=== PATIENT | female | born 1960 | race Caucasian/White ===

== ENCOUNTER 2016-07-22 03:33 | Inpatient (IN) | payer OTHER ==
[~2016-07-22] VITALS: Ht 160 cm; Wt 91.6 kg
[~2016-07-22 03:33] MED LIST: BACLOFEN20 M1 PO; BREO ELLIPTA 11 EACH INH; CETIRIZINE HCL5 M1 PO; CYANOCOBAL1000 MCG/2 IM; DYMISTA NASAL S23 GM NASB; EFFEXOR XR75 M1 PO; ETODOLAC300 M1 PO; LISINOPRIL10 M1 PO; SINGULAIR10 M1 PO; TRAMADOL HCL50 M1 PO; VENTOLIN HFA18 GM INH; ZANTAC150 M1 PO; ZOCOR20 M1 PO
--- NOTE | 2016-07-22 14:00 | Patient Discharge Instructions ---
Discharge Instructions General Discharge Information You were seen/treated for: RIGHT HIP PAIN You had these procedures: 07/22/2016 right total hip arthroplasty Watch for these problems: Redness, swelling, fever, signs of infection. Uncontrolled pain, Excessive bleeding. Decreased range of motion or unable to bear weight. Chest pain, shortness of breath. Call Surgeon to remove: Stitches Do not soak the wound: Yes No bath, but you may shower: Yes Other wound care: Daily dry dressing changes or as needed Diet Continue normal diet: Yes Activity Activity Self Limited: Yes Activity Limited to: Weight bear as tolerated Additional ACTIVITY Info: Daily physical therapy Acute Coronary Syndrome Inclusion Criteria At DC or during hospital stay patient has or had the following: ACS DIAGNOSIS No Discharge Core Measures Meds if any: Prescribed or Continued at Discharge Meds if any: NOT Prescribed or Continued at Discharge Congestive Heart Failure Inclusion Criteria At DC or during hospital stay patient has or had the following: CHF DIAGNOSIS No Discharge Core Measures Meds if any: Prescribed or Continued at Discharge Meds if any: NOT Prescribed or Continued at Discharge Cerebrovascular accident Inclusion Criteria At DC or during hospital stay patient has or had the following: CVA/TIA Diagnosis No Discharge Core Measures Meds if any: Prescribed or Continued at Discharge Meds if any: NOT Prescribed or Continued at Discharge Venous thromboembolism Inclusion Criteria VTE Diagnosis No VTE Type NONE VTE Confirmed by (Test) NONE Discharge Core Measures - Per Current guidelines, there needs to be overlap - treatment for the first 5 days of Warfarin therapy. - If discharged on Warfarin prior to 5 days of - overlap therapy, the patient will need to be - assessed for post discharge needs including - *Post discharge parental anticoagulation - *Warfarin and/or parental anticoagulation education - *Follow up date to check INR post discharge At least 5 days overlap therapy as Inpatient No Meds if any: Prescribed or Continued at Discharge Note: Overlap Therapy is Warfarin and Anticoagulant Meds if any: NOT Prescribed or Continued at Discharge
[2016-07-22] MEDS ORDERED: COLACE100 M1 PO (14:03)
[2016-07-22] MEDS ORDERED: ASPIRIN325 M2 PO (14:03)
[2016-07-22] MEDS ORDERED: DILAUDID2 M1 PO (14:03)
[2016-07-22] MEDS ORDERED: MIRALAX17 G1 PO (14:03)
--- NOTE | 2016-07-22 14:05 | Admission Core Measures ---
Admission Meds I reviewed the following Meds: Current Medications Sig/Tarun Start time Last Medication Dose Stop Time Status Admin Acetaminophen 975 MG ONCE 07/22 0000 NR (Tylenol) 07/22 2359 Albuterol Sulfate 2 PUF Q2P PRN 07/22 1400 UNVr (Ventolin) Atorvastatin Calcium 10 MG 1700 07/22 1700 UNVr (Lipitor) Baclofen 20 MG TID PRN 07/22 1400 UNVr (Lioresal 10MG Tablet) Budesonide/ 2 PUF BID 07/22 2200 UNVr Formoterol Fumarate (Symbicort) Cefazolin Sodium 2,000 MG ONCE 07/22 0000 NR (Kefzol-Ancef Inj) 07/22 2359 Famotidine 20 MG DAILY 07/23 1000 UNVr (Pepcid) Fluticasone 2 SPRAY DAILY 07/23 1000 UNVr Propionate (Flonase) Lisinopril 10 MG DAILY 07/23 1000 UNVr (Prinivil) Loratadine 10 MG DAILY PRN 07/22 1400 UNVr (Claritin) Montelukast Sodium 10 MG DAILY 07/23 1000 UNVr (Singulair) Oxycodone HCl 10 MG ONCE 07/22 0000 NR (Roxicodone) 07/22 2359 Venlafaxine HCl 75 MG DAILY 07/23 1000 UNVr (Effexor Xr) Acute Coronary Syndrome Inclusion Criteria ACS Diagnosis No Inpatient Core Measures LDL Reminder: If No, please order W/I first 24hr of stay Congestive Heart Failure Inclusion Criteria CHF Diagnosis No Cerebrovascular accident Inclusion Criteria CVA/TIA Diagnosis No Inpatient Core Measures Bedside Swallow Eval Reminder: If BSE failed, place ST order Antithrombotic Reminder: Order Antithrombotic Medication by end of day 2 Antithrombotic Reminder: Document Reason Antithrombotic Not ordered by end of day 2 AFIB/Flutter Reminder: If Present, add to problem list AFIB/Flutter Reminder: Order Anticoag Medication for pts with AFIB/Flutter Atherosclerosis Reminder: If Present, add to problem list LDL Reminder: If No, please order W/I first 24hr of stay PT Order Reminder: If No, please order Venous thromboembolism Inpatient Core Measures VTE Risk Factors: Age > 40, Obesity, Surgery VTE Prophylaxis Ordered Inpt Mech & Pharm No Mech VTE prophylaxis d/t No contraindications No VTE Pharm Prophylaxis d/t No contraindications Inclusion Criteria - Per Current guidelines, there needs to be overlap - treatment for the first 5 days of Warfarin therapy. - Parenteral Anticoagulation (IV or SC) needs to be - given along with Warfarin therapy. VTE Diagnosis No VTE Type NONE VTE Confirmed by (Test) NONE Problem List As ranked by this Provider includes Assessment & Plan 1. Status post total hip replacement, right HOME MEDS Home Med List Albuterol Sulfate (Ventolin Hfa) 90 MCG HFA.AER.AD 2 PUF INH PRN COPD ( Reported) Aspirin (Aspirin*) 325 MG TABLET 1 TAB PO BID BLOOD THINNER Azelastine/Fluticasone (Dymista Nasal [place]) 137 MCG-50 MCG/SPRAY SPRAY.PUMP 1 SPRAY NASB BID ALLERGIES (Reported) Baclofen 20 MG TABLET 1 TAB PO TID PRN SPASMS (Reported) Cetirizine HCl 5 MG TABLET 1 TAB PO DAILY ALLERGIES (Reported) Cyanocobalamin (Vitamin B-12) (Cyanocobalamin Injection) 1,000 MCG/ML VIAL 1 ML IM QW SUPPLEMENT (Reported) Docusate Sodium (Colace) 100 MG CAPSULE 1 CAP PO BID PRN CONSTIPATION Etodolac 300 MG CAPSULE 1 CAP PO BID INFLAMMATION (Reported) Fluticasone/Vilanterol (Breo Ellipta 100-25 Mcg INH) (Unknown Strength) BLST.W.DEV (Unknown Dose) INH DAILY COPD (Reported) Hydromorphone HCl (Dilaudid) 2 MG TABLET 1-2 TAB PO BID PRN PAIN Lisinopril 10 MG TABLET 1 TAB PO DAILY BP (Reported) Montelukast Sodium (Singulair) 10 MG TABLET 1 TAB PO DAILY ALLERGIES ( Reported) Polyethylene Glycol 3350 (Miralax) 17 GRAM POWD.PACK 1 PAC PO DAILY PRN CONSTIPATION Ranitidine HCl (Zantac) 150 MG TABLET 1 TAB PO DAILY GERD (Reported) Simvastatin (Zocor*) 20 MG TABLET 1 TAB PO DAILY CHOLESTEROL (Reported) Tramadol HCl 50 MG TABLET 1 TAB PO PRN PAIN (Reported) Venlafaxine HCl (Effexor XR) 75 MG CAP.ER.24H 1 CAP PO DAILY DEPRESSION ( Reported)
--- NOTE | 2016-07-22 14:06 | Discharge Summary ---
Visit Information Visit Dates Admission Date: 07/22/16 Discharge Date: 07/23/16 Hospital Course Course Attending Physician: JEAN CASTRO MD Primary Care Physician: UNKNOWN Hospital Course: Patient admitted to floor following procedure below. Patient ambulated with PT upon arrival to the floor. Patient continued to progress well. Upon discharge patient is afebrile, tolerating diet, pain controlled, ambulating well with rolling walker and PT. Complications: None Allergies: Coded Allergies: pregabalin (From LYRICA) (Severe, ANAPHYLAXIS 07/21/16) codeine (Intermediate, GI UPSET 07/21/16) Significant Procedures: 07/22/2016 right total hip arthroplasty Disposition Summary Disposition Principal Diagnosis: Right hip pain Additional Diagnosis: None Discharge Disposition: home health services Discharge Instructions General Discharge Information Code Status: Full Code Patient's Diet: Resume normal diet Patient's Activity: Weightbearing as tolerated Daily physical therapy Follow-Up Instructions/Appts: Call office to schedule/confirm appointment Medications at Discharge Discharge Medications: Stop taking the following medications: Etodolac (Etodolac) 300 MG CAPSULE ORAL TWICE DAILY Tramadol HCl (Tramadol HCl) 50 MG TABLET ORAL as needed for PAIN Continue taking these medications: Simvastatin (Zocor*) 20 MG TABLET 1 Tablet ORAL DAILY Comments: DOCUMENTED PER CMR DURING PRE-SX INTERVIEW NOT GIVEN IN HOSPITAL, LIPITOR GIVEN 07/22/16 Lisinopril (Lisinopril) 10 MG TABLET 1 Tablet ORAL DAILY Comments: DOCUMENTED PER CMR DURING PRE-SX INTERVIEW Last Taken: Time: Baclofen (Baclofen) 20 MG TABLET 1 Tablet ORAL THREE TIMES DAILY as needed for SPASMS Comments: DOCUMENTED PER CMR DURING PRE-SX INTERVIEW NOT GIVEN IN HOSPITAL Cetirizine HCl (Cetirizine HCl) 5 MG TABLET 1 Tablet ORAL DAILY Comments: DOCUMENTED PER CMR DURING PRE-SX INTERVIEW NOT GIVEN IN HOSPITAL Venlafaxine HCl (Effexor XR) 75 MG CAP.ER.24H 1 Capsule ORAL DAILY Comments: DOCUMENTED PER CMR DURING PRE-SX INTERVIEW Last Taken: 07/22/16 Time: 2013 Montelukast Sodium (Singulair) 10 MG TABLET 1 Tablet ORAL DAILY Comments: DOCUMENTED PER CMR DURING PRE-SX INTERVIEW Last Taken: 07/22/16 Time: 2012 Azelastine/Fluticasone (Dymista Nasal [place]) 137 MCG-50 MCG/SPRAY SPRAY.PUMP 1 [place] Both sides of nose TWICE DAILY Comments: DOCUMENTED PER CMR DURING PRE-SX INTERVIEW NOT GIVEN IN HOSPITAL Fluticasone/Vilanterol (Breo Ellipta 100-25 Mcg INH) (Unknown Strength) BLST.W.DEV Unknown Dose Inhale through mouth DAILY Comments: DOCUMENTED PER CMR DURING PRE-SX INTERVIEW NOT GIVEN IN HOSPITAL Albuterol Sulfate (Ventolin Hfa) 90 MCG HFA.AER.AD 2 Puff Inhale through mouth as needed for COPD Comments: DOCUMENTED PER CMR DURING PRE-SX INTERVIEW Ranitidine HCl (Zantac) 150 MG TABLET 1 Tablet ORAL DAILY Comments: DOCUMENTED PER CMR DURING PRE-SX INTERVIEW NOT GIVEN IN HOSPITAL Cyanocobalamin (Vitamin B-12) (Cyanocobalamin Injection) 1,000 MCG/ML VIAL 1 Milliliters INTRAMUSC Once a Week Comments: DOCUMENTED PER CMR DURING PRE-SX INTERVIEW NOT GIVEN IN HOSPITAL Start taking the following new medications: Hydromorphone HCl (Dilaudid) 2 MG TABLET 1-2 Tablet ORAL TWICE DAILY as needed for PAIN Qty = 36 No Refills Comments: Last Taken: 07/23/16 Time: 0845 Aspirin (Aspirin*) 325 MG TABLET 1 Tablet ORAL TWICE DAILY Qty = 60 No Refills Comments: Last Taken: 07/23/16 Time: 0845 Docusate Sodium (Colace) 100 MG CAPSULE 1 Capsule ORAL TWICE DAILY as needed for CONSTIPATION Qty = 30 No Refills Comments: Last Taken: 07/23/16 Time: 0651 Polyethylene Glycol 3350 (Miralax) 17 GRAM POWD.PACK 1 Packet ORAL DAILY as needed for CONSTIPATION Qty = 14 No Refills Instructions: dissolve in water Comments: Last Taken: 07/23/16 Time: 0845 Copies To: MATTHEW ARREAGA,JEAN
--- NOTE | 2016-07-22 14:45 | RADIOLOGY REPORT ---
EXAMINATION: 2 views of the right hip CLINICAL INFORMATION: Postop COMPARISON: None TECHNIQUE: Two views of the right hip. FINDINGS: Postoperative changes following right total hip arthroplasty. The prosthesis elements appear well aligned. A surgical drain tip projects just above the greater trochanter of the proximal right femur. No fractures are identified. The visualized bony pelvis is intact. IMPRESSION: Postoperative changes following right total hip arthroplasty and drain placement. Prosthesis elements appear well aligned. No fractures.
--- NOTE | 2016-07-22 15:09 | Operative Report ---
Operative/Inv Procedure Report Surgery Date: 07/22/16 Name of Procedure: Right total hip replacement Pre-Operative Diagnosis: Primary right hip DJD Post-Operative Diagnosis: Same Estimated Blood Loss: 400 Surgeon/Driller Helper: MATTHEW ARREAGA,JEAN Simons Anesthesia: block Operative/Procedure Note Note: Description of Procedure: The patient was taken to the operating room and positively identified. After induction of spinal anesthesia and administration of appropriate pre-operative antibiotics, the patient was positioned supine on the operating room table and all bony prominences were well padded. After performing a surgical timeout, the right lower extremity was prepped and draped in the usual sterile fashion. A direct anterior approach was made to the right hip. The incision was carried sharply through superficial soft tissues to the level of the fascia. Meticulous hemostasis was maintained with Bovie electocautery. The fascia over the tensor fascia rema muscle was opened sharply and the interval between the TFL and the sartorius was entered bluntly taking care to stay lateral to the lateral femoral cutaneous nerve. Retractors were placed around the femoral neck and the pericapsular fat was identified. The ascending branches of the lateral femoral circumflex vessels were identified and carefully coagulated. The pericapsular fat and anterior capsule were then resected. A napkin ring osteotomy was performed and the femoral head was removed without difficulty. Attention was then turned to the acetabulum. After appropriate placement of retractors, the acetabulum was exposed. Soft tissue was cleaned from the acetabular margin and notch. Overhanging osteophytes were removed and the teardrop was exposed. The acetabulum was then sequentially reamed to accept a 54 mm Anastasiia Tritanium hemispherical solid back shell. This was impacted into place in the appropriate position and fitted with a 32 mm Trident X3 zero degree polyethylene insert. Attention was then turned to the femur. After performing the appropriate ligament releases, the proximal femur was exposed. It was then sequentially broached to accept a size 5 [place] accolade 2 stem. This was trialed for leg length and stability. The trial component was removed and the final component was impacted into place. The trunnion was carefully cleaned and fit with a 32 mm, -4 Biolox delta ceramic femoral head. The hip was reduced and put through a full range of motion and found to be stable. The articular space was then irrigated with sterile saline. The periarticular soft tissues were infilitrated with Marcaine. The fascial layer was closed with interrupted #1 vicryl suture and the skin was re-approximated with interrupted 2 -0 vicryl. The skin was closed with a running 3-0 V-Lock suture. Steri-strips and a sterile dressing were applied. The patient was awakened and taken to the recovery room in satisfactory condition.
--- NOTE | 2016-07-22 15:32 | PN- Orthopedic ---
Subjective Subjective: Awake, alert complaining of pain but has just received pain meds Denies nausea Normall takes tramadol at home Objective Vital Signs and I&Os Intake & Output 07/22 1600 07/22 0800 07/22 0000 07/21 1600 07/21 0800 07/21 0000 Intake Total Output Total Balance Patient 202 lb Weight Physical Exam: afebrile, vss Good urine output in mercedes - has not been dc'd yet General: alert and oriented times three Chest: clear anteriorly bilaterally, RRR Abd: soft, good bs Ext: warm, positive sensate, no calf tenderness Wounds: dressed, dry Drain in place Assessment/Plan Assessment/Plan 56 yo female s/p R THR dc mercedes drain overnight pain mgmt PT - WBAT ancef 2 doses ASA 325mg po bid for dvt ppx Core Measures/Miscellaneous Venous Thromboembolism VTE Risk Factors: Age > 40, Surgery VTE Contraindications: No Contraindications VTE Prophylaxis Ordered Inpt: Mech & Pharm VTE Diagnosis: No VTE Type: NONE VTE Confirmed by (Test): NONE Beta Jackie Is Beta Jackie a Home Med? No Antibiotics Is Patient on Antibiotics? Yes If Yes: prophylaxis (24 hrs post op)
--- NOTE | 2016-07-22 16:14 | NUR ---
Physical Therapy. Pt still in PACU, report not yet given to nsg for pt to be moved upstairs. PT offered to come to PACU for PT evaluation. Nsg deferred, reporting pt is in too much pain at this time. PT will f/u as appropriate for evaluation.
[2016-07-22 17:30] VITALS: BP 118/70
[2016-07-22 19:40] VITALS: BP 126/70
--- NOTE | 2016-07-22 21:42 | NUR ---
LATE ENTRY: PATIENT ARRIVED TO FLOOR AT 1633 FROM PACU, S/P TOTAL R HIP REPLACEMENT VS 97.9 66 18 118/70 100% ROOM AIR, PAIN 7/10 A&O, LCTA. INDEPENDENT WITH CANE PRIOR TO SURGERY. L HIP DSG CDI, HEMOVAC IN PLACE, ALPS ARE ON. SKIN OTHERWISE INTACT. OTERO D/C'D AT 1600, HAS VOIDED 800CCs AT THIS TIME. #20 IV TO RAC WITH NS @ 75 ML/HR INFUSING. ORIENTED TO ROOM AND CALL SWANN. CONTINUE TO MONITOR.
[2016-07-22 21:55] VITALS: BP 124/70
[2016-07-23] VITALS: BP 110/70
[2016-07-23 04:00] VITALS: BP 120/70
[2016-07-23 07:58] VITALS: BP 110/70
[2016-07-23 08:28] LABS: ABSOLUTE BASOPHIL COUNT 0 /CUMM (0.0-0.2); ABSOLUTE EOSINOPHIL COUNT 0 /CUMM (0.0-0.7); ABSOLUTE GRANULOCYTE CT 4.6 /CUMM (1.4-6.5); ABSOLUTE LYMPH COUNT 1.3 /CUMM (1.2-3.4); ABSOLUTE MONOCYTE COUNT 0.4 /CUMM (0.10-0.60); BASOPHIL % 0.6 % (0.0-2.0); EOSINOPHIL % 0.3 % (0-5); GRANULOCYTE % 72.5 % (42.2-75.2); HEMATOCRIT 31.9 % (37-47); MEAN CORPUSCULAR HGB 31.8 PG (27.0-31.0); MEAN CORPUSCULAR HGB CONC 34.3 G/DL (33.0-37.0); MEAN CORPUSCULAR VOLUME 92.8 FL (81.0-99.0); MEAN PLATELET VOLUME 8.3 FL (7.4-10.4); PLATELET COUNT 197 /CUMM (130-400); RBC DISTRIBUTION WIDTH 13.4 % (11.5-14.5); RED BLOOD CELL CT 3.43 /CUMM (4.20-5.40); WHITE BLOOD CELL COUNT 6.3 /CUMM (4.8-10.8)
--- NOTE | 2016-07-23 08:36 | PN- Orthopedic ---
Subjective Subjective: No acute overnight events reported. Patient states that she wasn't able to sleep well, but that while she has pain it is tolerable She denies nausea and vomitting. She has been voiding without difficulty. She denies chest pain, shortness of breath and difficulty breathing. Objective Vital Signs and I&Os Vital Signs Date Time Temp Pulse Resp B/P Pulse O2 O2 Flow FiO2 Ox Delivery Rate 07/23 0758 98.6 63 20 110/70 97 Room Air 07/23 0400 97.8 72 20 120/70 99 Room Air 07/23 0000 98.4 70 18 110/70 97 Room Air 07/22 2155 99.4 68 20 124/70 98 07/22 2014 63 126/70 07/22 1940 98.1 63 20 126/70 98 07/22 1730 97.9 66 18 118/70 100 Room Air Intake & Output 07/23 1600 07/23 0800 07/23 0000 07/22 1600 07/22 0800 07/22 0000 Intake Total 600 3313 Output Total 945 1565 Balance -345 1748 Intake, IV 600 2713 Intake, Oral 600 Output, 45 85 Drainage Output, Urine 900 1480 Patient 202 lb Weight Physical Exam: General: Alert and oriented x3, no acute distress Cardiac: RRR, s1s2 Pulmonary: Bilateral lung sounds clear to auscultation Abdomen: non-tender, non-distended Extremities: Moves all extremities, distal sensation intact. Motor 5/5 in plantar and dorsi flexion. Skin warm and well perfused. Dp pulses palpable bialterally. Calves soft and non-tender bilaterally. Surgical site: Dressing dry and intact. JOSE drain in place, sanguinous drainage. D/C'd this am. Thigh compartment soft. Assessment/Plan Assessment/Plan This is a 56 year old, pod 1, s/p right THR. Doing well -D/C iv fluids, tolerating adequate po and urine output is adequate -D/C jose drain this am -F/U am labs -ASA/ALPS for DVT ppx, teds on at discharge -OOB with PT -Continue current pain regimen. -Pt to be discharged today pending PT clearance Core Measures/Miscellaneous Venous Thromboembolism VTE Risk Factors: Age > 40, Surgery VTE Contraindications: No Contraindications VTE Prophylaxis Ordered Inpt: Mech & Pharm VTE Diagnosis: No VTE Type: NONE VTE Confirmed by (Test): NONE Beta Jackie Is Beta Jackie a Home Med? No Antibiotics Is Patient on Antibiotics? Yes If Yes: prophylaxis (24 hrs post op)
== END 2016-07-23 13:25 | disposition home health service (06) | DRG 470 ==
LOC: ENRESERVTM → ENRESERVDT → SDA 03:33 → ENPENDDIS 03:33 → 2NB 03:33 → SDA 07:00 → 2NB 16:34
PROVIDERS: Physician Assistant Surgical; ADMIT Orthopaedic Surgery
PROC: 0SR904A Replacement of Right Hip Joint with Ceramic on Polyethylene Synthetic Substitute, Uncemented, Open Approach (ICD-10-PCS; principal; 2016-07-22)
DX: M16.11 Unilateral primary osteoarthritis, right hip (principal); I10 Essential (primary) hypertension; Z87.891 Personal history of nicotine dependence; E78.5 Hyperlipidemia, unspecified; J44.9 Chronic obstructive pulmonary disease, unspecified; M79.7 Fibromyalgia; F41.8 Other specified anxiety disorders; K21.9 Gastro-esophageal reflux disease without esophagitis
CPT/HCPCS: 2NBSP; 36415; 73502-RT; 82436; 88304; 97116-GO; 97161-GP; 97530-GO; J0690; J0735; J1170; J2405; J3490